=== PATIENT | female | born 1960 ===

== ENCOUNTER 2020-10-27 22:34 | Emergency (ER) | payer BC ==
[~2020-10-27] VITALS: Ht 154.9 cm; Wt 59.1 kg
[2020-10-27 22:36] VITALS: BP 153/79
== END 2020-10-27 22:45 | disposition left against medical advice (07) ==
LOC: EMS 22:34
DX: R42 Dizziness and giddiness (principal); Z53.21 Procedure and treatment not carried out due to patient leaving prior to being seen by health care provider